=== PATIENT | female | born 1980 | race Caucasian/White ===

== ENCOUNTER 2016-10-23 14:24 | Inpatient (IN) | payer BC ==
[~2016-10-23] VITALS: Ht 170.2 cm; Wt 92.3 kg
[~2016-10-23 14:24] MED LIST: PRENATAL1 TA1 PO
[2016-11-12] VITALS (44 sets, daily range): BP systolic 108–158; BP diastolic 55–82; PULSE 63–107; TEMP 89–99.9
[2016-11-12] MEDS ORDERED: PRENATAL (07:48)
[2016-11-12 08:17] LABS: BASO # 0.1 (0.0-0.2); BASO % 0.6 % (0.0-2.0); EOS # 0.1 (0.0-0.7); EOS % 1.1 % (0-4.0); GRAN # 6.7 (1.4-6.5); GRAN % 62.3 % (42.2-75.2); LYMPH % 27.9 % (20.0-51.0); MEAN CELL VOLUME 86 fl (80.0-100.0); MEAN CORPUSCULAR HEMOGLOBIN 29 pg (27.0-31.0); MEAN CORPUSCULAR HGB CONC 34 g/dl (33.0-37.0); MEAN PLATELET VOLUME 9.7 fl (7.4-10.4); MONO # 0.8 (0.1-0.6); MONO % 7.6 % (1.7-9.3); PLATELET COUNT 340 K/mm3 (130-400); RED BLOOD COUNT 4.17 M/mm3 (4.10-5.30); REDCELL DISTRIBUTION WIDTH-CV 13.2 % (11.5-14.5); WHITE BLOOD COUNT 10.7 K/mm3 (4.8-10.8)
[2016-11-12 08:18] LABS: HEMATOCRIT 35.8 % (37.0-47.0)
[2016-11-13 00:45] VITALS: BP 125/64; PULSE 75; TEMP 98.2
[2016-11-13 04:30] VITALS: BP 116/70; PULSE 71; TEMP 98.3
[2016-11-13 09:24] VITALS: BP 119/64; PULSE 80; TEMP 97.8
[2016-11-13] MEDS ORDERED: IBU800 M1 PO (09:24)
[2016-11-13] MEDS ORDERED: PERCOCET 325 MG1 TA2 PO (09:24)
[2016-11-13 16:42] VITALS: BP 126/89; PULSE 84; TEMP 98.5
== END 2016-11-13 20:10 | disposition home or self-care (01) | DRG 775 ==
LOC: LDRO 11-11 10:19 → EDSTATUS 11-11 10:54 → LDR 11-12 07:03 → OB 11-12 20:55 → EDSTATUS 11-17 10:17 → LDRO 11-17 14:23
PROVIDERS: Student in an Organized Health Care Education/Training Program
PROC: 10E0XZZ Delivery of Products of Conception, External Approach (ICD-10-PCS; principal; 2016-11-12)
PROC: 0KQM0ZZ Repair Perineum Muscle, Open Approach (ICD-10-PCS; 2016-11-12)
PROC: 3E033VJ Introduction of Other Hormone into Peripheral Vein, Percutaneous Approach (ICD-10-PCS; 2016-11-12)
DX: O26.843 Uterine size-date discrepancy, third trimester (principal); O43.123 Velamentous insertion of umbilical cord, third trimester; O70.1 Second degree perineal laceration during delivery; O35.8XX0 Maternal care for other (suspected) fetal abnormality and damage, not applicable or unspecified; O22.43 Hemorrhoids in pregnancy, third trimester; O76 Abnormality in fetal heart rate and rhythm complicating labor and delivery; Z3A.39 39 weeks gestation of pregnancy; Z37.0 Single live birth
CPT/HCPCS: J2590; J7120

== ENCOUNTER → 2017-01-20 | Outpatient (REF) ==
[~2017-01-20] MED LIST changes: +IBU800 M1 PO; +PERCOCET 325 MG1 TA2 PO; +PRENATAL
== END ==
LOC: WSOH 12:45
DX: Z02.89 Encounter for other administrative examinations (principal)
CPT/HCPCS: G0463

== ENCOUNTER → 2018-10-14 | Outpatient (CLI) | payer BC | LOC: MC.RAD 08:08 | DX: N63.14 Unspecified lump in the right breast, lower inner quadrant (principal) ==

== ENCOUNTER 2021-01-28 16:12 | Emergency (ER) | payer BC ==
[~2021-01-28] VITALS: Ht 170.2 cm; Wt 72.7 kg
[2021-01-28 16:30] VITALS: BP 138/71; PULSE 96; TEMP 98
[2021-01-28] MEDS ORDERED: NORCO 325 MG-51 TAB PO (17:24)
== END 2021-01-28 18:05 | disposition home or self-care (01) ==
LOC: COL.ER 16:12
DX: S92.512A Displaced fracture of proximal phalanx of left lesser toe(s), initial encounter for closed fracture (principal); W22.8XXA Striking against or struck by other objects, initial encounter